=== PATIENT | female | born 1950 | race Caucasian/White ===

== ENCOUNTER 2017-04-14 12:51 | Day surgery (SDC) | payer MEDICARE ==
[~2017-04-14 12:51] MED LIST: Buffered Lidocaine 0.9% SYRIN* 5 ML/SYR SYRINGE INTRADERM ONE; Famotidine IV* 10 MG/ML 2 ML (20 mg) IV ONE; Ondansetron INJ* 2 MG/ML VIAL IV ONE
[2017-04-14] MEDS ORDERED: Famotidine IV* 10 MG/ML 2 ML (20 mg) ONE (13:12)
[2017-04-14] MEDS ORDERED: Buffered Lidocaine 0.9% SYRIN* 5 ML/SYR SYRINGE ONE (13:12)
[2017-04-14] MEDS ORDERED: Ondansetron INJ* 2 MG/ML VIAL ONE (13:12)
[2017-04-14] MEDS ORDERED: Propofol* 500 MG/50 ML BTL ONE (14:27)
[2017-04-14] MEDS ORDERED: Lidocaine 2% PF * 5 ML VIAL ONE (14:27)
[2017-04-14] MEDS ORDERED: fentaNYL* 50 MCG/ML 2 ML VIAL (100 MCG VIAL) ONE (14:28)
[2017-04-14] MEDS ORDERED: Midazolam* 1 MG/ML 2 ML VIAL (2 MG) ONE (14:33)
[2017-04-14] MEDS ORDERED: Ondansetron ODT TAB* 4 MG PO PRN (14:34)
[2017-04-14] MEDS ORDERED: Acetaminophen TAB* 325 MG PO PRN (14:34)
[2017-04-14] MEDS ORDERED: oxyCODONE/Acetamin 5/325 MG* TAB PO PRN (14:34)
[2017-04-14] MEDS ORDERED: fentaNYL* 50 MCG/ML 2 ML VIAL (100 MCG VIAL) IV PRN (14:34)
[2017-04-14] MEDS ORDERED: EPHEDrine (Pressors)* 50 MG/ML VIAL ONE (15:33)
[2017-04-14] MEDS ORDERED: Phenylephrine IV* 40 MCG/ML 10 ML SYRINGE ONE (15:33)
[2017-04-14 16:21] VITALS: BP 129/61
--- NOTE | 2017-04-15 05:44 | PRO ---
DATE: 04/14/17 [facility] REFERRING PHYSICIAN: Dr. Michelle Samaniego * PROCEDURE: Colonoscopy and ileoscopy with random biopsy right transverse and sigmoid colon. INDICATION: This 66-year-old woman has had changes in her bowel pattern. For few months is seen more constipation oriented and now is more on the diarrhea side. There has not been any bleeding. 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 MEDICATIONS: She is on multiple medicines approximately 15 includin. Synthroid 125. 2. Protonix 40. 3. Oxycodone 15. 4. Metformin 1000 b.i.d. 5. Chantix. There are others. Based on experience with other outpatient anesthesia episodes, she was told to have in-hospital monitored anesthesia and that would seem to fit the number of medicines she is on. ENDOSCOPIST: Dr. Martínez. MEDICATIONS: Anesthesia per Dr. Hampton. FINDINGS: She is a moderately overweight woman with a smokers voice, in no distress. Her abdomen is symmetric, soft, and nontender. Perianal inspection and rectal are normal. Initial views show a fair prep with lots of fluid. Scope advances into the sigmoid and then passes through the descending, transverse, and right colon was obtained. Cecum, ileocecal valve, 5-cm terminal ileum, and the right colon directly was normal. Over a liter of fluid was aspirated. Coming back from the cecum, mucosa was smooth and normal without inflammation. Random biopsies were obtained from the right transverse and descending colon. A couple of small diverticula were seen in the sigmoid, but no erythema or scarring. Final views in the distal sigmoid and rectum including retroflexion were normal. IMPRESSION: 1. Minimal diverticulosis, sigmoid colon. 2. Normal colonoscopy and ileoscopy, otherwise. 3. Diarrhea - probably a paradoxical functional effect and titrating fiber and other apya-vhy-aggiuor agents is likely to be helpful. She will start with one FiberCon a day and MiraLAX 3 nights a week. [id number]/[facility] #: [id number] [facility]
== END 2017-04-14 16:32 | disposition home or self-care (01) ==
LOC: OR 12:51
PROVIDERS: ATTEND Internal Medicine Gastroenterology
DX: R19.4 Change in bowel habit (principal); K57.30 Diverticulosis of large intestine without perforation or abscess without bleeding; R19.7 Diarrhea, unspecified; Z79.84 Long term (current) use of oral hypoglycemic drugs; I10 Essential (primary) hypertension; E03.9 Hypothyroidism, unspecified; F17.200 Nicotine dependence, unspecified, uncomplicated; E05.00 Thyrotoxicosis with diffuse goiter without thyrotoxic crisis or storm; E11.22 Type 2 diabetes mellitus with diabetic chronic kidney disease; K21.9 Gastro-esophageal reflux disease without esophagitis; K58.9 Irritable bowel syndrome, unspecified
CPT/HCPCS: 88305; J2250; J2405; J2704; J3010

== ENCOUNTER → 2017-04-19 17:47 | Emergency (ER) | payer MEDICARE ==
[~2017-04-19 17:47] MED LIST changes: -Buffered Lidocaine 0.9% SYRIN* 5 ML/SYR SYRINGE INTRADERM ONE; -Famotidine IV* 10 MG/ML 2 ML (20 mg) IV ONE; +Morphine INJ* 4 MG/ML 1 ML CARPUJECT IV ONE; +NS 0.9% 1000 ML* 1,000 ML IV ONE; +O ndansetron ODT 4MG 2TAB PRPK 4 MG PAK PO ONE
[2017-04-19] MEDS: NS 0.9% 1000 ML* 2,000 ML IV ONE ×2 (19:28→19:43)
[2017-04-19 19:44] LABS: Hematocrit 42 % (35-47); Hemoglobin 13.9 g/dl (12.0-16.0); Mean Corpuscular HGB Conc 33 g/dl (31-36); Mean Corpuscular Hemoglobin 29 pg (27-31); Mean Corpuscular Volume 89 fL (80-97); Mean Platelet Volume 8 um3 (7.4-10.4); Red Blood Count 4.73 10^6/ul (4.0-5.4); Red Cell Distribution Width 15 % (10.5-15); White Blood Count 9.3 10^3/ul (3.5-10.8)
[2017-04-19 19:57] LABS: Albumin 4.7 g/dL (3.2-5.2); BUN/Creatinine Ratio 18.8 (8-20); C Reactive Protein 2.87 mg/L (< 5.00); Calcium 11.6 mg/dL (8.6-10.3); EGFR African American 43.3 (>60); EGFR Non-African American 33.7 (>60); Globulin 3.7 g/dL (2-4); Total Bilirubin 0.4 mg/dL (0.2-1.0); Total Protein 8.4 g/dL (6.4-8.9)
[2017-04-19 20:00] LABS: Potassium 5.8 mmol/L (3.5-5.0)
--- NOTE | 2017-04-19 20:42 | RAD ---
INDICATION: Abdominal pain . Constipation COMPARISON: None TECHNIQUE: Noncontrast axial source images were acquired from the level hemidiaphragms to the symphysis pubis. Intravenous contrast was not given reportedly secondary to none specified iodine contrast allergy. Oral contrast was not given per ED request. This limits evaluation of the bowel in this patient with constipation. Lung bases: There is minimal left basilar atelectasis The lung bases are otherwise clear. Liver: The liver is normal in size. Noncontrast imaging shows no evidence of a hepatic mass or ductal dilatation. Gallbladder: There are scant calcified gallstones. There is no thickening gallbladder wall or pericholecystic fluid. Spleen: The spleen is normal in size. The noncontrast CT appearance is normal. Pancreas: Noncontrast imaging shows no pancreatic mass or ductal dilitation. Adrenal glands: No masses are identified. Kidneys/Bladder: There is no evidence of nephrolithiasis or CT evidence of hydronephrosis. Noncontrast imaging shows no evidence of a renal mass. The bladder is unremarkable.. Adenopathy: There is no evidence of intraperitoneal or retroperitoneal adenopathy. Evaluation is limited without oral contrast. Fluid collections: There are no free or localized fluid collections. Vessels: The aorta and iliac vessels are normal in caliber. There are no significant atherosclerotic changes. The IVC appears normal Pelvic organs: The uterus and adnexa appear normal GI tract: Evaluation of the bowel is limited without oral contrast. The stomach and small bowel appear grossly normal. There are scant diverticula of the sigmoid colon. The colon is otherwise unremarkable. There is no significant retained stool. There is no obstruction. Soft tissues: No soft tissue abnormalities of the extraperitoneal abdomen or pelvis are identified. Osseous structures: There are no acute osseous findings. There is posterior lumbar fusion at L4 L3 through S1. There are no findings of hardware failure. IMPRESSION: NO ACUTE CT FINDINGS. TINY GALLSTONES LIKELY REPRESENTING AN INCIDENTAL FINDING. SCANT DIVERTICULA WITHOUT CT EVIDENCE OF DIVERTICULITIS.
--- NOTE | 2017-04-19 22:00 | ED ---
Antonio Martin Julia, scribed for Gibson Osborne MD on 04/19/17 at 1903 . Abdominal Pain/Female - HPI Summary HPI Summary: This patient is a 66 year old F presenting to [facility] accompanied by with a chief complaint of diffuse, dull, abdominal pain since the evening of .The patient rates the pain 3/10 in severity. Symptoms aggravated by eating. Symptoms alleviated by nothing. Patient reports nausea and bloating. Patient denies fever, chills, and ankle edema. Patient is still eating and passing gas but has vomited and dry heaved twice since 04/16/17, . Patient is now on new medication from colonoscopy on 04/14/17. - History of Current Complaint Chief Complaint: EDAbdPain Stated Complaint: ABD PAIN/NAUSEA Time Seen by Provider: 04/19/17 18:47 Hx Obtained From: Patient Onset/Duration: Lasting Days Timing: Constant Pain Intensity: 5 Pain Scale Used: 0-10 Numeric Location: Diffuse Character: Dull Aggravating Factor(s): Food Alleviating Factor(s): Nothing Associated Signs and Symptoms: Positive: Other: - nausea and bloating Allergies/Adverse Reactions: Allergies Allergy/AdvReac Type Severity Reaction Status Date / Time Amoxicillin Allergy Severe Hives Verified 04/11/17 14:34 Cefaclor [From Ceclor] Allergy Severe Hives Verified 04/11/17 14:34 Celecoxib [From Celebrex] Allergy Severe Diarrhea Verified 04/11/17 14:34 Chlorothiazide Allergy Severe Hives Verified 04/11/17 14:34 [From Supres 150] Ciprofloxacin [From Cipro] Allergy Severe Hives Verified 04/11/17 14:34 Clarithromycin [From Biaxin] Allergy Severe Stomach Verified 04/11/17 14:34 Cramps Codeine Allergy Severe Headache, Verified 04/11/17 14:34 Nause, vomiting Erythromycin Allergy Severe Stomach Verified 04/14/17 13:39 Cramps Glycerol, Iodinated Allergy Severe Hives Verified 04/11/17 14:34 [From Organidin] Iodine Allergy Severe Hives Verified 04/11/17 14:34 Methyldopa [From Supres 150] Allergy Severe Hives Verified 04/11/17 14:34 Oxaprozin [From Daypro] Allergy Severe Stomach Verified 04/11/17 14:34 Cramps Sulfamethoxazole Allergy Severe Hives Verified 04/11/17 14:34 w/Trimethoprim [From Bactrim] PMH/Surg Hx/FS Hx/Imm Hx Endocrine/Hematology History: Reports: Hx Diabetes - type 2, Hx Thyroid Disease Cardiovascular History: Reports: Hx Hypertension - controlled by meds Respiratory History: Reports: Hx Asthma GI History: Reports: Hx Gastroesophageal Reflux Disease History: Reports: Hx Renal Disease Musculoskeletal History: Reports: Hx Arthritis, Hx Tendonitis - calcified in both shoulders Denies: Hx Osteoporosis Sensory History: Reports: Hx Contacts or Glasses - glasses Denies: Hx Hearing Aid Opthamlomology History: Reports: Hx Contacts or Glasses - glasses Neurological History: Reports: Hx Migraine - rarely, Hx Nerve Disease - Cancer History Hx Chemotherapy: No Hx Radiation Therapy: No - Surgical History Surgery Procedure, Year, and Place: FUSION L1-S1, 3 back surgeries 2009. rotator cuff surgery 2000, 2014. bilat cataract surgery with 2009. radio frequency ablation to the SI joint. tonsillectomy as a child, 2 c-sections. bilat carpal tunnel surgery Hx Anesthesia Reactions: Yes - blood pressure drops with anesthesia Infectious Disease History: No Infectious Disease History: Denies: Traveled Outside the [place] in Last 30 Days - Family History Known Family History: Negative: Renal Disease - Social History Alcohol Use: Occasionally Hx Substance Use: No Substance Use Type: Reports: None Hx Tobacco Use: Yes Smoking Status (MU): Former Smoker Amount Used/How Often: has smoked off and on for 1964 Review of Systems Negative: Fever, Chills Positive: Abdominal Pain, Nausea, Other - bloating Positive: Other - negative - ankle edema All Other Systems Reviewed And Are Negative: Yes Physical Exam - Summary Physical Exam Summary: General: mild appearing, no pain distress Skin: warm, color reflects adequate perfusion, dry Head: normal Eyes: EOMI, BASSAM ENT: normal Neck: supple, nontender Respiratory: CTA, breath sounds present Cardiovascular: RRR Abdomen: soft, nontender Bowel: hypo bowel sounds, tympany on percussion Musculoskeletal: normal, strength/ROM intact Neurological: normal, sensory/motor intact, A&O x3 Psychological: affect/mood appropriate Triage Information Reviewed: Yes Vital Signs On Initial Exam: Initial Vitals Temp Pulse Resp BP Pulse Ox 97 F 108 18 119/61 100 04/19/17 17:55 04/19/17 17:55 04/19/17 17:55 04/19/17 17:55 04/19/17 17:55 Vital Signs Reviewed: Yes Diagnostics - Vital Signs Vital Signs Temp Pulse Resp BP Pulse Ox 04/19/17 17:55 97 F 108 18 119/61 100 - Laboratory Lab Results: Lab Results 04/19/17 04/19/17 04/19/17 Range/Units 19:34 19:34 19:34 WBC (3.5-10.8) 10^3/ul RBC (4.0-5.4) 10^6/ul Hgb (12.0-16.0) g/dl Hct (35-47) % MCV (80-97) fL MCH (27-31) pg MCHC (31-36) g/dl RDW (10.5-15) % Plt Count (150-450) 10^3/ul MPV (7.4-10.4) um3 Neut % (Auto) (38-83) % Lymph % (Auto) (25-47) % Graves % (Auto) (1-9) % Eos % (Auto) (0-6) % Baso % (Auto) (0-2) % Absolute Neuts (auto) (1.5-7.7) 10^3/ul Absolute Lymphs (auto) (1.0-4.8) 10^3/ul Absolute Monos (auto) (0-0.8) 10^3/ul Absolute Eos (auto) (0-0.6) 10^3/ul Absolute Basos (auto) (0-0.2) 10^3/ul Absolute Nucleated RBC 10^3/ul Nucleated RBC % INR (Anticoag Therapy) 0.94 (0.77-1.02) APTT 39.7 H (26.0-36.3) seconds Sodium 130 L (133-145) mmol/L Potassium 5.8 H (3.5-5.0) mmol/L Chloride 103 (101-111) mmol/L Carbon Dioxide 20 L (22-32) mmol/L Anion Gap 7 (2-11) mmol/L BUN 29 H (6-24) mg/dL Creatinine 1.54 H (0.51-0.95) mg/dL Est GFR ( Amer) 43.3 (>60) Est GFR (Non-Af Amer) 33.7 (>60) BUN/Creatinine Ratio 18.8 (8-20) Glucose 146 H (70-100) mg/dL Lactic Acid (0.5-2.0) mmol/L Calcium 11.6 H (8.6-10.3) mg/dL Total Bilirubin 0.40 (0.2-1.0) mg/dL AST 14 (13-39) U/L ALT 21 (7-52) U/L Alkaline Phosphatase 112 H (34-104) U/L C-Reactive Protein 2.87 (< 5.00) mg/L B-Natriuretic Peptide 8 ( - 100) pg/mL Total Protein 8.4 (6.4-8.9) g/dL Albumin 4.7 (3.2-5.2) g/dL Globulin 3.7 (2-4) g/dL Albumin/Globulin Ratio 1.3 (1-3) Lipase 41 (11.0-82.0) U/L 04/19/17 04/19/17 Range/Units 19:34 19:34 WBC 9.3 (3.5-10.8) 10^3/ul RBC 4.73 (4.0-5.4) 10^6/ul Hgb 13.9 (12.0-16.0) g/dl Hct 42 (35-47) % MCV 89 (80-97) fL MCH 29 (27-31) pg MCHC 33 (31-36) g/dl RDW 15 (10.5-15) % Plt Count 447 (150-450) 10^3/ul MPV 8 (7.4-10.4) um3 Neut % (Auto) 69.5 (38-83) % Lymph % (Auto) 21.5 L (25-47) % Graves % (Auto) 7.7 (1-9) % Eos % (Auto) 0.5 (0-6) % Baso % (Auto) 0.8 (0-2) % Absolute Neuts (auto) 6.5 (1.5-7.7) 10^3/ul Absolute Lymphs (auto) 2.0 (1.0-4.8) 10^3/ul Absolute Monos (auto) 0.7 (0-0.8) 10^3/ul Absolute Eos (auto) 0 (0-0.6) 10^3/ul Absolute Basos (auto) 0.1 (0-0.2) 10^3/ul Absolute Nucleated RBC 0 10^3/ul Nucleated RBC % 0 INR (Anticoag Therapy) (0.77-1.02) APTT (26.0-36.3) seconds Sodium (133-145) mmol/L Potassium (3.5-5.0) mmol/L Chloride (101-111) mmol/L Carbon Dioxide (22-32) mmol/L Anion Gap (2-11) mmol/L BUN (6-24) mg/dL Creatinine (0.51-0.95) mg/dL Est GFR ( Amer) (>60) Est GFR (Non-Af Amer) (>60) BUN/Creatinine Ratio (8-20) Glucose (70-100) mg/dL Lactic Acid 1.6 (0.5-2.0) mmol/L Calcium (8.6-10.3) mg/dL Total Bilirubin (0.2-1.0) mg/dL AST (13-39) U/L ALT (7-52) U/L Alkaline Phosphatase (34-104) U/L C-Reactive Protein (< 5.00) mg/L B-Natriuretic Peptide ( - 100) pg/mL Total Protein (6.4-8.9) g/dL Albumin (3.2-5.2) g/dL Globulin (2-4) g/dL Albumin/Globulin Ratio (1-3) Lipase (11.0-82.0) U/L Result Diagrams: 04/19/17 19:34 04/19/17 19:34 Lab Statement: Any lab studies that have been ordered have been reviewed, and results considered in the medical decision making process. - CT A/P CT CT Interpretation Completed By: Radiologist - NO ACUTE CT FINDINGS. TINY GALLSTONES LIKELY REPRESENTING AN INCIDENTAL FINDING. SCANT DIVERTICULA WITHOUT CT EVIDENCE OF DIVERTICULITIS. ED Physician has reviewed this report. - EKG 2121 Cardiac Rate: NL EKG Rhythm: Sinus Rhythm - at [address] Segment: Normal Ectopy: None EKG Interpretation: reveals no peaked T waves Abdominal Pain Fem Course/Dx - Course Course Of Treatment: DISCUSSED RESULTS WITH PATIENT AND . DISCUSSED WITH DR GILMORE AND HOSPITALIST. DISPOSITION PENDING AT SHIFT CHANGE. - Diagnoses Provider Diagnoses: Abdominal pain, Hyperkalemia, Dehydration Discharge - Discharge Plan Condition: Stable Disposition: HOME Prescriptions: Ondansetron ODT TAB* [Zofran 4 MG Odt TAB*] 4 mg PO Q6H PRN #10 tab.odt PRN Reason: Nausea Patient Education Materials: Abdominal Pain (ED), Hyperkalemia (ED), Dehydration (ED) Referrals: Michelle Samaniego MD [Primary Care Provider] - Saeid Gilmore MD [Medical Doctor] - Additional Instructions: FOLLOW UP WITH YOUR DOCTOR. RETURN TO THE EMERGENCY DEPARTMENT FOR ANY WORSENING OF YOUR CONDITION; PAIN, FEVER, VOMITING, YOU FEEL ILL OR QUESTIONS OR CONCERNS. The documentation as recorded by the Antonio stephenson Julia accurately reflects the service I personally performed and the decisions made by me, Gibson Osborne MD.
[2017-04-19 22:49] LABS: Urine Bacteria 1+ (Absent); Urine Bilirubin Negative (Negative); Urine Glucose Negative (Negative); Urine Nitrite Negative (Negative)
[2017-04-19 23:38] VITALS: BP 120/64
--- NOTE | 2017-04-20 19:46 | ED ---
Nancy Martin Emily, scribed for Charlie Henry on 04/19/17 at 2321 . Progress - Progress Note Progress Note: SIGN-OUT FROM DR. GOMEZ UPON SHIFT CHANGE PENDING LAB RESULTS Patient is stable for discharge home with a diagnosis of non-specific abdominal pain. Re-Evaluation - Re-Evaluation First Eval Re-Evaluation Time: 23:10 Change: Improved Course/Dx - Course Course Of Treatment: Patient's symptoms have improved. Pt is stable for discharge home with follow up from PCP. - Diagnoses Provider Diagnoses: Abdominal pain, Hyperkalemia, Dehydration The documentation as recorded by the rosalieibNancy garcia Emily accurately reflects the service I personally performed and the decisions made by Elaine melara Emmanuel.
== END | disposition home or self-care (01) ==
LOC: ED 17:47
DX: E86.0 Dehydration (principal); R10.9 Unspecified abdominal pain; E87.5 Hyperkalemia; E11.9 Type 2 diabetes mellitus without complications; I10 Essential (primary) hypertension; J45.909 Unspecified asthma, uncomplicated; K21.9 Gastro-esophageal reflux disease without esophagitis; Z87.891 Personal history of nicotine dependence
CPT/HCPCS: 36415; 74176; 80053; 81003; 81015; 83605; 83690; 83880; 85025; 85610; 85730; 86140; 87086; 93005; 96360; 96374; 96375; 99283; A9270-GY; J2270; J2405